=== PATIENT | male | born 1940 | race Caucasian/White ===

== ENCOUNTER 2019-10-14 12:49 | Observation (INO) | payer MEDICARE ==
[~2019-10-14] VITALS: Ht 165.1 cm; Wt 73.5 kg
--- NOTE | 2019-10-14 13:40 | NUR ---
RECIVED PT PER ELVIS FROM DR OFFICE, TO ROOM 2127. IV SITED TO RT FA WITH NS AT 100CC/HR. FAMILY AT SIDE. ADMIT ASSESSMENT PER RN
[2019-10-14] MEDS ORDERED: GLUCOPHAGE500 MG PO (13:41)
[2019-10-14] MEDS ORDERED: LISINOPRIL20 MG PO (13:41)
[2019-10-14] MEDS ORDERED: NORVASC10 MG PO (13:41)
[2019-10-14] MEDS ORDERED: HYDRALAZINE HCL25 MG PO (13:43)
[2019-10-14 13:48] VITALS: BP 139/57; BMI 27.0
[2019-10-14 13:56] VITALS: BP 139/57
[2019-10-14 16:27] LABS: BASOPHILS 0.2 % (0-2); EOSINOPHILS 3.8 % (0-7); HEMATOCRIT 37.2 % (42.0-54.0); HEMOGLOBIN 12.1 g/dL (13.5-17.5); IMMATURE GRANULOCYTES 0.3 % (0-5); LYMPHOCYTES 22.3 % (15-50); MCH 30.4 pg (26.0-34.0); MCHC 32.5 g/dL (31.0-37.0); MCV 93.5 fL (80.0-100.0); MEAN PLATELET VOLUME 10.7 fL (7.4-10.4); MONOCYTES 9.8 % (2-11); NEUTROPHILS 63.6 % (40-80); PLATELET COUNT 211 10x3/uL (130-400); RBC 3.98 10x6/uL (4.20-6.10); RDW 13.5 % (11.5-14.5); WBC 13.8 10x3/uL (4.8-10.8)
[2019-10-14 16:49] LABS: ALBUMIN 3.2 g/dL (3.4-5.0); ANION GAP 13.7 mmol/L (8-16); BILIRUBIN - DIRECT 0.07 mg/dL (0.00-0.30); BILIRUBIN - INDIRECT 0.31 mg/dL (0.00-1.00); BILIRUBIN - TOTAL 0.38 mg/dL (0.2-1.3); CALCIUM 8.8 mg/dL (8.5-10.1); CARBON DIOXIDE 22.4 mmol/L (21.0-32.0); CREATININE - SERUM 1.3 mg/dL (0.6-1.3); POTASSIUM - SERUM 4.1 mmol/L (3.5-5.1)
[2019-10-14 17:02] VITALS: BP 143/65
[2019-10-14 17:17] LABS: MAGNESIUM - SERUM 1.6 mg/dL (1.8-2.4)
[2019-10-14 17:37] LABS: APTT 32.1 SECONDS (22.8-39.4); INR 1.12 (0.85-1.17); PROTIME 13.9 SECONDS (11.6-15.0)
--- NOTE | 2019-10-14 19:00 | NUR ---
EVENING ROUNDS COMPLETE. PT SITTING IN BED, NO SIGNS OF DISTRESS, AAOX4. PT DENIES ANY PAIN OR NEEDS AT THIS TIME. CL IN REACH, BED IN LOWEST POSITION.
[2019-10-14 19:46] LABS: APPEARANCE CLEAR (CLEAR); BILIRUBIN NEGATIVE (NEGATIVE); COLOR YELLOW (YELLOW); GLUCOSE NEGATIVE (NEGATIVE); KETONE NEGATIVE (NEGATIVE); NITRITE NEGATIVE (NEGATIVE); PROTEIN 1+ mg/dL (NEGATIVE); UROBILINOGEN NORMAL (NORMAL)
[2019-10-14 20:33] VITALS: BP 145/57
[2019-10-15 00:57] VITALS: BP 132/57
[2019-10-15 04:28] VITALS: BP 151/59
[2019-10-15 06:36] LABS: BASOPHILS 0.2 % (0-2); EOSINOPHILS 4.3 % (0-7); HEMATOCRIT 36.6 % (42.0-54.0); HEMOGLOBIN 11.8 g/dL (13.5-17.5); IMMATURE GRANULOCYTES 0.2 % (0-5); LYMPHOCYTES 23.1 % (15-50); MCHC 32.2 g/dL (31.0-37.0); MCV 93.1 fL (80.0-100.0); MEAN PLATELET VOLUME 10.4 fL (7.4-10.4); MONOCYTES 9.9 % (2-11); NEUTROPHILS 62.3 % (40-80); PLATELET COUNT 215 10x3/uL (130-400); RBC 3.93 10x6/uL (4.20-6.10); RDW 13.5 % (11.5-14.5); WBC 12.1 10x3/uL (4.8-10.8)
[2019-10-15 06:38] LABS: CALCIUM 8.6 mg/dL (8.5-10.1); CARBON DIOXIDE 23.9 mmol/L (21.0-32.0); CHLORIDE - SERUM 110 mmol/L (98-107); GLUCOSE 132 mg/dL (74-106); POTASSIUM - SERUM 3.9 mmol/L (3.5-5.1); SODIUM 141 mmol/L (136-145); eGFR NON AFRICAN AMERICAN 86 mL/min (90-120)
[2019-10-15 06:39] LABS: CALC OSMOLALITY 282 mosm/kg (275-300); CREATININE - SERUM 0.9 mg/dL (0.6-1.3); UREA NITROGEN 13 mg/dL (7-18)
--- NOTE | 2019-10-15 07:10 | NUR ---
REPORT RECEIVED RESPIRATORY SCIENTIST AND PATIENT CARE ASSUMED. PATIENT LAYING IN BED ON BACK AWAKE, ALERT AND ORIENTED X 4. PATIENT DENIES ANY NEEDS OR PAIN. WILL CONTINUE WITH PLAN OF CARE. SR UP X 2 BED IN LOW POSITION AND CALL LIGHT IN REACH.
[2019-10-15 08:00] VITALS: BP 133/67
[2019-10-15 12:24] VITALS: BP 129/60
[2019-10-15 14:07] VITALS: Ht 165.1 cm; Wt 73.5 kg
--- NOTE | 2019-10-15 14:49 | NUR ---
PATIENT LAYING IN BED ON BACK WATCHING TV. PATIENT IS STABLE AND VSS PATIENT DENIES ANY NEEDS OR PAIN. GAVIOTA ROSARIO IN ROOM. NEW ORDERS RECEIVED. WILL CONTINUE TO MONITOR. SR UP X 2 BED IN LOW POSITION AND CALL LIGHT IN REACH.
[2019-10-15] MEDS ORDERED: LEVOFLOXACIN500 MG PO (14:56)
[2019-10-15] MEDS ORDERED: PROTONIX40 MG PO (14:56)
[2019-10-15] MEDS ORDERED: COREG6.25 MG PO (14:56)
[2019-10-15] MEDS ORDERED: TESSALON PERLE100 MG PO (14:57)
[2019-10-15] MEDS ORDERED: FLAGYL500 MG PO (14:57)
[2019-10-15] MEDS ORDERED: MUCINEX600 MG PO (14:58)
--- NOTE | 2019-10-15 15:47 | NUR ---
PATIENT IS STABLE AND VSS. PATIENT DENIES ANY NEEDS OR PAIN. INTERPRTOR IN ROOM. ORDERS RECEVIED FOR DC. WRTITTEN AND VERBAL DC INSTRUCTIONS GIVEN. WHEN QUESTIONED BY INTERPRETOR, PATIENT STATES HE UNDERSTANDS AND HAS NO QUESTIONS. IV DCD WITHOUT DIFFICULTY WITH ENTIRE CATHETER INTACT. PATIENT SIGNED DC INSTRUCTIONS. PATIENT IS DC HOME FOR SELF CARE. PATIENT TO FRONT DOOR VIA WC ACCOMPANIED BY HOSPITAL STAFF TO PRIVATE VEHICLE DRIVEN BY FAMILY MEMBER.
--- NOTE | 2019-10-16 08:42 | MORECARE ---
CASE MANAGEMENT DISCHARGE SUMMARY PATIENT: YURY BOLIVAR UNIT: [id number] ADM DATE: 10/14/19 AGE: 78 : 38 SEX: M ROOM/BED: D.9687 AUTHOR: RAMONE FORD PHYSICIAN: REFERRING PHYSICIAN: LESLIE GORDON DO DATE OF SERVICE: 10/16/19 Discharge Plan Patient Name: YURY BOLIVAR Facility: [facility]:[place] : 1940 Planned Disposition: Home Anticipated Discharge Date: 10/15/19 Discharge Date: 10/15/2019 Expected LOS: 1 Initial Reviewer: [email or web address] Initial Review Date: 10/16/2019 Generated: 10/16/19 9:42 am Coverage Notice Reviewer: [email or web address] Ezequiel Rocha Notice Issued Date-Time: 10/15/2019 14:40 Notice Type: Medicare Outpatient Observation Notice Notice Delivered To: Patient Relationship to Patient: Biology Laboratory Assistant Name: Delivery Method: HAND - Hand Delivered Elise Days: Prior Verbal Notification: Recipient Understood Notice: Recipient Signature: Med Rec Note Co-signed by Attending: Coverage Notice Comment: Patient Name: YURY BOLIVAR Page [phone] at 0842 All edits/amendments must be made on the electronic document DICTATION DATE: 10/16/19841 CHILD CUSTODY EVALUATOR: JANAE 10/16/19 08 RPT#: [id number] DC DATE:10/15/19 STATUS: DIS IN [facility] [address] [place] [address] END OF REPORT
[2019-10-20 15:09] LABS: OVA + PARASITE EXAM Final report (())
== END 2019-10-15 15:51 | disposition home or self-care (01) ==
LOC: D.M2 12:49 → OBSVTIME 12:49 → D.M2 10-15 15:51
PROVIDERS: Internal Medicine Nephrology; ADMIT Family Medicine; ATTEND Family Medicine
DX: J20.9 Acute bronchitis, unspecified (principal); I10 Essential (primary) hypertension; E78.5 Hyperlipidemia, unspecified; E11.9 Type 2 diabetes mellitus without complications; R19.7 Diarrhea, unspecified